=== PATIENT | female | born 1950 | race Caucasian/White ===

== ENCOUNTER 2020-07-19 10:58 | Outpatient (CLI) | payer MEDICARE | END 2020-07-19 10:59 | disposition home or self-care (01) | LOC: BICMAMMO 10:58 | PROVIDERS: ATTEND Internal Medicine | DX: Z12.31 Encounter for screening mammogram for malignant neoplasm of breast (principal); Z91.89 Other specified personal risk factors, not elsewhere classified | CPT/HCPCS: 77063; 77067 ==

== ENCOUNTER 2020-09-20 18:30 | Outpatient (CLI) | payer MEDICARE, BC | END 2020-09-20 18:31 | disposition home or self-care (01) | LOC: SLEEPLAB 18:30 | PROVIDERS: ATTEND Internal Medicine | DX: G47.33 Obstructive sleep apnea (adult) (pediatric) (principal); R06.83 Snoring; G47.10 Hypersomnia, unspecified; G47.00 Insomnia, unspecified; R53.83 Other fatigue; G40.909 Epilepsy, unspecified, not intractable, without status epilepticus | CPT/HCPCS: 95810 ==

== ENCOUNTER 2020-10-13 19:30 | Outpatient (CLI) | payer MEDICARE, BC | END 2020-10-13 19:31 | disposition home or self-care (01) | LOC: SLEEPLAB 19:30 | PROVIDERS: ATTEND Internal Medicine | DX: G47.33 Obstructive sleep apnea (adult) (pediatric) (principal); R06.83 Snoring; R53.83 Other fatigue; G47.10 Hypersomnia, unspecified; E66.9 Obesity, unspecified; Z68.24 Body mass index [BMI] 24.0-24.9, adult | CPT/HCPCS: 95811 ==

== ENCOUNTER 2021-07-21 13:30 | Outpatient (CLI) | payer MEDICARE, BC | END 2021-07-21 13:31 | disposition home or self-care (01) | LOC: BICMAMMO 13:30 | PROVIDERS: ATTEND Internal Medicine | DX: Z12.31 Encounter for screening mammogram for malignant neoplasm of breast (principal); Z91.89 Other specified personal risk factors, not elsewhere classified | CPT/HCPCS: 77063; 77067 ==

== ENCOUNTER 2022-10-20 10:58 | Outpatient (CLI) | payer MEDICARE, BC | END 2022-10-20 10:59 | disposition home or self-care (01) | LOC: BICMAMMO 10:58 | PROVIDERS: ATTEND Internal Medicine | DX: Z12.31 Encounter for screening mammogram for malignant neoplasm of breast (principal); M81.0 Age-related osteoporosis without current pathological fracture; M85.89 Other specified disorders of bone density and structure, multiple sites; Z91.89 Other specified personal risk factors, not elsewhere classified | CPT/HCPCS: 77063; 77067; 77080 ==

== ENCOUNTER 2023-10-26 08:18 | Outpatient (CLI) | payer MEDICARE, BC | END 2023-10-26 08:19 | disposition home or self-care (01) | LOC: BICMAMMO 08:18 | PROVIDERS: ATTEND Internal Medicine | DX: N64.89 Other specified disorders of breast (principal) | CPT/HCPCS: 77065; G0279 ==

== ENCOUNTER 2024-10-31 09:29 | Outpatient (CLI) | payer MEDICARE, BC | END 2024-10-31 09:30 | disposition home or self-care (01) | LOC: BICMAMMO 09:29 | PROVIDERS: ATTEND Family Medicine | DX: Z12.31 Encounter for screening mammogram for malignant neoplasm of breast (principal); M81.0 Age-related osteoporosis without current pathological fracture; M85.89 Other specified disorders of bone density and structure, multiple sites; Z91.89 Other specified personal risk factors, not elsewhere classified | CPT/HCPCS: 77063; 77067; 77080 ==